=== PATIENT | male | born 1955 | race Caucasian/White ===

== ENCOUNTER 2020-11-06 20:10 | Emergency (ER) | payer BC, OTHER ==
[~2020-11-06] VITALS: Ht 177.8 cm; Wt 95.3 kg
[2020-11-06] MEDS ORDERED: diphenhydrAMINE 50 MG/ML INJ (BENADRYL) IVP ONE (20:15)
[2020-11-06] MEDS ORDERED: FAMOTIDINE 20MG/2ML IV (PEPCID) IVP ONE (20:15)
--- NOTE | 2020-11-06 20:50 | ED General ---
General Chief Complaint: Bite-Animal/Human/Insect Stated Complaint: INSECT BITE Source of Information: Patient Exam Limitations: No Limitations History of Present Illness Date Seen by Provider: Nov 06, 2020 Time Seen by Provider: 19:45 Initial Comments Patient is a 65-year-old male who presents with hives after being stung by bee 90 minutes prior to ED arrival. Patient was stung in his right index finger. 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 Patient has never been hospitalized or placed on ventilator for airway protection. He denies shortness of breath, or airway tightening. He has intense itching with urticaria extending over his upper torso and around his neck just beneath his chin. Patient did take 50 mg of Benadryl prior to ED arrival. No other symptoms or complaints. History obtained from patient the patient spouse. Timing/Duration: 1-3 Hours Severity: Mild Modifying Factors: improves with Other Associated Systoms: Other Allergies and Home Medications Allergies Coded Allergies: Tetracyclines (Verified Allergy, Unknown, 11/06/20) Patient Home Medication List Home Medication List Reviewed: Yes Review of Systems Review of Systems Constitutional: see HPI EENTM: see HPI Respiratory: see HPI Cardiovascular: see HPI Gastrointestinal: see HPI Genitourinary: see HPI Musculoskeletal: see HPI Skin: see HPI Psychiatric/Neurological: See HPI Hematologic/Lymphatic: See HPI Immunological/Allergic: see HPI All Other Systems Reviewed Negative Unless Noted: Yes Past Scfkszx-Heirnd-Emlhir Hx Past Med/Social Hx: Reviewed Nursing Past Med/Soc Hx Physical Exam Vital Signs Capillary Refill : Height, Weight, BMI Height: '" Weight: lbs. oz. kg; BMI Method: General Appearance: No Apparent Distress, Anxious, Other Eyes: Bilateral Eye Normal Inspection, Bilateral Eye PERRL, Bilateral Eye EOMI HEENT: PERRL/EOMI, Normal ENT Inspection, Pharynx Normal Neck: Full Range of Motion, Non Tender, Supple, Other (Hives under chin and around neck. All oropharyngeal swelling) Respiratory: Lungs Clear; No Wheezing Cardiovascular: Regular Rate, Rhythm, No Edema Gastrointestinal: Soft Extremity: Other (Minimal swelling to right index finger. No stinger present.) Neurologic/Psychiatric: Alert, Oriented x3 Skin: Rash Focused Exam Sepsis Stage: Ruled Out Progress/Results/Core Measures Suspected Sepsis SIRS Temperature: Pulse: Respiratory Rate: Blood Pressure / Mean: Results/Orders My Orders Orders - SUZANNA ADEN DO Diphenhydramine Injection (Benadryl Inje (11/06/20 20:15) Famotidine Injection (Pepcid Injection) (11/06/20 20:15) Dexamethasone Injection (Decadron Injec (11/06/20 20:15) Medications Given in ED Current Medications Medications Dose Ordered Sig/Ludwig Route Start Time Stop Time Status Last Admin Dose Admin Dexamethasone Sodium Phosphate 10 mg ONCE ONCE IV 11/06/20 20:15 11/06/20 20:17 DC 11/06/20 20:30 10 MG Diphenhydramine HCl 50 mg ONCE ONCE IVP 11/06/20 20:15 11/06/20 20:17 DC 11/06/20 20:30 50 MG Famotidine 40 mg ONCE ONCE IVP 11/06/20 20:15 11/06/20 20:17 DC 11/06/20 20:30 40 MG Vital Signs/I&O Capillary Refill : Departure Communication (Admissions) Patient given IV Decadron Benadryl and Pepcid. Rash significantly improved. No airway swelling or wheezing prior to discharge. I will continue supportive care and prescribe epinephrine pen. Return precautions reviewed. Patient verbalizes understanding agreement discharge instructions prior to discharge. Impression Primary Impression: Hives Additional Impression: Allergy to bee sting Disposition: 01 HOME, SELF-CARE Condition: Stable Departure-Patient Inst. Decision time for Depature: 20:54 Referrals: STACEY HOPPER MD (PCP) Primary Care Physician Patient Instructions: Allergic Reaction ED, Insect Bites and Stings (DC) Add. Discharge Instructions: Please continue to take medications for the next 3 days. Use epinephrine if airway swelling or shortness of breath contact 911. Return to the ED if new or worsening symptoms. All discharge instructions reviewed with patient and/or family. Voiced understanding. Scripts Epinephrine (Epipen) 0.3 Mg/0.3 Ml Auto.injct 0.3 MG IJ UD PRN for SHORTNESS OF BREATH, #1 ML 1 Refill Prov: SUZANNA ADEN DO 11/06/20 Prednisone (Prednisone) 20 Mg Tab 40 MG PO DAILY, #3 TAB 0 Refills Prov: SUZANNA ADEN DO 11/06/20 Famotidine (Pepcid) 40 Mg Tablet 40 MG PO BID, #10 TAB Prov: SUZANNA ADEN DO 11/06/20 SUZANNA ADEN DO Nov 06, 2020 20:50
[2020-11-06] MEDS ORDERED: FAMO40TA72 PO (20:57)
[2020-11-06] MEDS ORDERED: EPIN0.3P2 IJ (20:57)
[2020-11-06] MEDS ORDERED: PRD20T PO (20:57)
[2020-11-06 21:25] VITALS: BP 136/72
== END 2020-11-06 21:25 | disposition home or self-care (01) ==
LOC: ER FS 20:10
DX: L50.9 Urticaria, unspecified (principal); Z91.030 Bee allergy status; Z88.1 Allergy status to other antibiotic agents
CPT/HCPCS: 99283

== ENCOUNTER 2022-05-20 15:45 | Emergency (ER) | payer BC ==
[~2022-05-20] VITALS: Ht 180.3 cm; Wt 95.3 kg
[~2022-05-20 15:45] MED LIST: EPIN0.3P2 IJ; FAMO40TA72 PO; PRD20T PO
--- NOTE | 2022-05-20 15:57 | ED General ---
General Chief Complaint: Laceration Stated Complaint: HEAD LAC Source of Information: Patient, Family Exam Limitations: No Limitations History of Present Illness Date Seen by Provider: May 20, 2022 Time Seen by Provider: 15:48 Initial Comments 66-year-old male with past medical history of hypertension coming in after a metal pipe fell onto the top of his head shortly prior to arrival. He endorses a laceration to his head which he tried to clean up. Has a mild headache with it. Did not pass out, remembers all events. Denies any neck pain or back pain. Denies any pain anywhere else. Has been ambulatory since the event. Does not take any blood thinners, only takes a baby aspirin daily. Is otherwise denying any other acute complaints. Allergies and Home Medications Allergies Coded Allergies: Tetracyclines (Verified Allergy, Unknown, 11/06/20) Patient Home Medication List Home Medication List Reviewed: Yes Epinephrine (Epipen) 0.3 Mg/0.3 Ml Auto.injct, 0.3 MG IJ UD PRN for SHORTNESS OF BREATH Prescribed by: SUZANNA ADEN on 11/06/202056 Famotidine (Pepcid) 40 Mg Tablet, 40 MG PO BID Prescribed by: SUZANNA ADEN on 11/06/202056 Prednisone (Prednisone) 20 Mg Tab, 40 MG PO DAILY Prescribed by: SUZANNA ADEN on 11/06/202056 Review of Systems Review of Systems Constitutional: no symptoms reported EENTM: no symptoms reported Respiratory: no symptoms reported Cardiovascular: no symptoms reported Gastrointestinal: no symptoms reported Genitourinary: no symptoms reported Musculoskeletal: no symptoms reported Skin: see HPI Psychiatric/Neurological: See HPI Hematologic/Lymphatic: No Symptoms Reported Immunological/Allergic: no symptoms reported All Other Systems Reviewed Negative Unless Noted: Yes Past Tdpqyrg-Umuycd-Xczugx Hx Patient Social History Substance use?: No Seasonal Allergies Seasonal Allergies: No Past Medical History Surgeries: Yes (aorta stent, left knee) Respiratory: No Cardiac: Yes Coronary Artery Disease, Hypertension Neurological: No Genitourinary: No Gastrointestinal: No Musculoskeletal: No Endocrine: No HEENT: No Cancer: No Psychosocial: No Blood Disorders: No Physical Exam Vital Signs Vital Signs - First Documented 05/20/22 15:51 Temp 36.1 Pulse 77 Resp 16 B/P (MAP) 183/79 (113) Pulse Ox 97 Capillary Refill : Height, Weight, BMI Height: '" Weight: lbs. oz. kg; 30.00 BMI Method: General Appearance: No Apparent Distress, WD/WN Eyes: Bilateral Eye Normal Inspection, Bilateral Eye PERRL, Bilateral Eye EOMI HEENT: PERRL/EOMI, Pharynx Normal, Other (7cm superficial laceration to the top of his head, galea is intact) Neck: Full Range of Motion, Normal Inspection, Non Tender, Supple Respiratory: Chest Non Tender, Lungs Clear, Normal Breath Sounds, No Accessory Muscle Use, No Respiratory Distress Cardiovascular: Regular Rate, Rhythm, No Edema, Normal Peripheral Pulses Gastrointestinal: Normal Bowel Sounds, Non Tender, Soft; No Distended, No Guarding Back: Normal Inspection, No CVA Tenderness, No Vertebral Tenderness Extremity: Normal Capillary Refill, Normal Inspection, Normal Range of Motion, Non Tender, No Calf Tenderness, No Pedal Edema Neurologic/Psychiatric: Alert, Oriented x3, No Motor/Sensory Deficits, Normal Mood/Affect, oim architect II-XII Norm as Tested, Other (normal gait) Skin: Normal Color, Warm/Dry Lymphatic: No Adenopathy Procedures/Interventions Wound Location: Scalp Wound Length (cm): 7 Wound's Depth, Shape: superficial Wound Explored: clean Irrigated w/ Saline (ccs): 500 Betadine Prep?: Yes Anesthesia: Lidocaine w/ Epi Volume Anesthetic (ccs): 5 Staple Repair: Stapler 35W Progress 10 jenniffer used with good wound apposition Progress/Results/Core Measures Suspected Sepsis SIRS Temperature: Pulse: Respiratory Rate: Blood Pressure / Mean: Results/Orders My Orders Orders - FELICIANO HINES MD Dipht,Pertuss(Acell),Tet Adult (Boostrix (05/20/22 16:00) Ct Head Wo (05/20/22 15:53) Lidocaine/Epi 2% 1:100,000 (Xylocaine/Ep (05/20/22 16:00) Lidocaine/Epi Mpf 2% 1:200,000 (Xylocain (05/20/22 16:03) Medications Given in ED Current Medications Medications Dose Ordered Sig/Ludwig Route Start Time Stop Time Status Last Admin Dose Admin Lidocaine/ Epinephrine 20 ml ONCE ONCE INJ 05/20/22 16:00 05/20/22 16:01 DC 05/20/22 16:08 20 ML Vital Signs/I&O 05/20/22 15:51 Temp 36.1 Pulse 77 Resp 16 B/P (MAP) 183/79 (113) Pulse Ox 97 Capillary Refill : Progress Note : Progress Note Patient presented after a pipe hit him in the head with a laceration to his scalp. ABCs were intact, GCS 15, vital stable on presentation. Tetanus shot is up-to-date within the past 2 years. Did not require anything for pain medicine. CT head with no acute abnormalities. He has no neck pain and full range of motion of his neck with normal ambulation. The wound was closed with jenniffer and needs to come out in 10 to 14 days. Diagnostic Imaging Diagonstic Imaging: CT (head) Comments 10 jenniffer used with good wound apposition Departure Impression Primary Impression: Scalp laceration Qualified Codes: S01.01XA - Laceration without foreign body of scalp, initial encounter Disposition: HOME, SELF-CARE Condition: Stable Departure-Patient Inst. Decision time for Depature: 16:26 Referrals: GABRIEL CROOK APRN (PCP) Primary Care Physician STACEY HOPPER MD (Family) Primary Care Physician Patient Instructions: Laceration Repair With Jenniffer ED Add. Discharge Instructions: Edgar need to come out in 10 to 14 days depending on how it looks. You can come back to the ER or go to your regular doctor for that. If you see any redness spreading up your skin, pus coming out, or new fever, I want the wound to be checked for infection. Take Tylenol as needed for pain. Try not to get it wet for the next 24 hours, after that water can run over it briefly in the shower, but do not scrub it. If you would like, you can put bacitracin ointment on it. Try to keep it uncovered otherwise and clean. Do not go swimming or get the wound submerged in any way. Work/School Note: Work Release Form Date Seen in the Emergency Department: May 20, 2022 Return to Work: May 21, 2022 Restrictions: No Restrictions FELICIANO HINES MD May 20, 2022 15:57
[2022-05-20] MEDS ORDERED: LIDOCAINE/EPI 2% 1:100,00 (XYLOCAINE) 20 ML VIAL INJ ONE (16:00)
[2022-05-20] MEDS ORDERED: TETANUS,DIPTH,PERTUSS P/F (BOOSTRIX) 0.5 ML VIAL IM ONE (16:00)
[2022-05-20] MEDS ORDERED: LIDOCAINE/EPI 2% 1:200,00 (XYLOCAINE) 20 ML VIAL ONE (16:03)
--- NOTE | 2022-05-20 16:15 | Diagnostic Imaging Report ---
PROCEDURE: CT head without contrast. TECHNIQUE: Multiple contiguous axial images were obtained through the brain without the use of intravenous contrast. Auto Exposure Controls were utilized during the CT exam to meet ALARA standards for radiation dose reduction. INDICATION: Head injury. COMPARISON: No prior studies are available for comparison. FINDINGS: The ventricles and sulci are within normal limits. No sulcal effacement or midline shift is detected. No acute intra-axial or extra-axial hemorrhage is detected. Cisterns are patent. Visualized paranasal sinuses are clear. IMPRESSION: No acute intracranial process is detected. Dictated by: Dictated on workstation # [id number]
[2022-05-20 16:28] VITALS: BP 183/79
== END 2022-05-20 16:28 | disposition home or self-care (01) ==
LOC: EDUNIT# 15:45 → ER FS 15:46
DX: S01.01XA Laceration without foreign body of scalp, initial encounter (principal); I25.10 Atherosclerotic heart disease of native coronary artery without angina pectoris; Z79.82 Long term (current) use of aspirin; Z28.310 Unvaccinated for COVID-19; W20.8XXA Other cause of strike by thrown, projected or falling object, initial encounter
CPT/HCPCS: 70450

== ENCOUNTER 2022-05-31 12:19 | Emergency (ER) | payer BC ==
[2022-05-31 12:28] VITALS: BP 146/82
== END 2022-05-31 12:30 | disposition home or self-care (01) ==
LOC: ER FS 12:19 → EDUNIT# 12:19 → ER FS 12:30
DX: Z48.02 Encounter for removal of sutures (principal)

== ENCOUNTER → 2022-11-29 | Outpatient (CLI) | payer BC | LOC: LABNPT 14:35 | PROVIDERS: ATTEND Podiatrist Foot & Ankle Surgery | DX: Z01.89 Encounter for other specified special examinations (principal) | CPT/HCPCS: 87070; 87075; 87205 ==